=== PATIENT | female | born 2000 | race Caucasian/White ===

== ENCOUNTER 2019-10-12 16:56 | Emergency (ER) | payer MEDICAID ==
--- NOTE | 2019-10-12 18:43 | EDM.PDOC ---
ED HPI GENERAL MEDICAL PROBLEM - General Chief Complaint: General Stated Complaint: FOOD STUCK IN THROAT Time Seen by Provider: 10/12/19 18:25 Source of Information: Reports: Patient, Old Records History Limitations: Reports: No Limitations - History of Present Illness INITIAL COMMENTS - FREE TEXT/NARRATIVE: 19 yo female choked on a burger yesterday associated with coughing. Has continued to have some discomfort in her chest/throat since then so comes in thinking she has something stuck in her throat. Has been swallowing fine today. Is not SOB. Is coughing much less as time goes on. Onset: Sudden Onset Date: 10/11/19 Duration: Day(s): (1), Improving Location: Reports: Neck (throat), Chest Quality: Reports: Dull Severity: Mild Improves with: Reports: Other (time) Worsens with: Reports: Other (choking yesterday. Coughing now is a little irritating.) Context: Reports: Other (see HPI) Associated Symptoms: Reports: Cough (improving). 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 (see below) (albuterol) - Related Data Allergies Allergy/AdvReac Type Severity Reaction Status Date / Time No Known Allergies Allergy Verified 10/12/19 18:02 Home Meds: Home Meds Cetirizine [ZyrTEC] 10 mg PO DAILY 04/29/18 [History] Ethinyl Estradiol/Drospirenone [Sadie 3 mg-0.02 mg Tablet] 1 each PO DAILY 04/29 [History] Fluticasone Propionate [Flonase Allergy Relief] 2 spray NS DAILY 04/29/18 [ History] Madhavi's Wort 150 mg PO DAILY 04/29/18 [History] Past Medical History Respiratory History: Reports: Asthma Musculoskeletal History: Reports: Fracture Other Musculoskeletal History: finger toe Psychiatric History: Reports: Anxiety - Past Surgical History HEENT Surgical History: Reports: Tonsillectomy Social & Family History - Tobacco Use Smoking Status *Q: Never Smoker - Caffeine Use Caffeine Use: Reports: Coffee, Soda, Tea ED ROS GENERAL - Review of Systems Review Of Systems: See Below Constitutional: Reports: No Symptoms HEENT: Reports: Throat Pain (mild) Respiratory: Reports: Cough (improving). Denies: Shortness of Breath Endocrine: Denies: No Symptoms GI/Abdominal: Reports: No Symptoms : Reports: No Symptoms Skin: Reports: No Symptoms ED EXAM, GENERAL - Physical Exam Exam: See Below Exam Limited By: No Limitations General Appearance: Alert, WD/WN, No Apparent Distress Eye Exam: Bilateral Eye: Normal Inspection Ears: Normal External Exam, Normal Canal, Hearing Grossly Normal Ear Exam: Bilateral Ear: Auricle Normal, Canal Normal Nose: Normal Inspection Throat/Mouth: Normal Inspection, Normal Lips, Normal Voice, No Airway Compromise Head: Atraumatic, Normocephalic Neck: Normal Inspection Respiratory/Chest: No Respiratory Distress, Lungs Clear, Normal Breath Sounds, No Accessory Muscle Use Cardiovascular: Regular Rate, Rhythm, No Edema Extremities: Normal Inspection Neurological: Alert, Oriented, CN II-XII Intact, Normal Cognition, No Motor/ Sensory Deficits Psychiatric: Normal Affect, Normal Mood Skin Exam: Warm, Dry, Intact, Normal Color, No Rash Course - Vital Signs Last Recorded V/S: Last Vital Signs Temp 36.8 C 10/12/19 18:13 Pulse 82 10/12/19 18:13 Resp 16 10/12/19 18:13 BP 142/92 H 10/12/19 18:13 Pulse Ox 97 10/12/19 18:13 Departure - Departure Time of Disposition: 18:42 Disposition: Home, Self-Care 01 Condition: Good Clinical Impression: Choking due to food in larynx Qualifiers: Encounter type: initial encounter Qualified Code(s): T17.320A - Food in larynx causing asphyxiation, initial encounter - Discharge Information *PRESCRIPTION DRUG MONITORING PROGRAM REVIEWED*: No *COPY OF PRESCRIPTION DRUG MONITORING REPORT IN PATIENT OSCAR: No Referrals: Marlo Griffiths MD [Primary Care Provider] - Additional Instructions: Robitussin DM and/or acetaminophen for your symptoms. Recheck as needed. Sepsis Event Note - Evaluation Sepsis Screening Result: No Definite Risk - Focused Exam Vital Signs: Vital Signs Temp Pulse Resp BP Pulse Ox 10/12/19 18:13 36.8 C 82 16 142/92 H 97 10/12/19 17:56 36.8 C 82 16 142/92 H 97 Date Exam was Performed: 10/12/19 Time Exam was Performed: 18:38
== END 2019-10-12 18:55 | disposition home or self-care (01) ==
LOC: JP.ED 16:56
DX: T17.328A Food in larynx causing other injury, initial encounter (principal); J45.909 Unspecified asthma, uncomplicated; Z79.899 Other long term (current) drug therapy
CPT/HCPCS: 99283